=== PATIENT | male | born 1965 | race Caucasian/White ===

== ENCOUNTER 2018-06-15 15:21 | Emergency (ER) | payer BC, SELFPAY ==
[2018-06-15 16:22] LABS: #Basophils 0.1 thou/uL (0.0-0.2); #Eosinphils 0.1 thou/uL (0.0-0.7); #Lymphocytes 1.3 thou/uL (1.20-3.40); #Monocytes 0.7 thou/uL (0.11-0.59); #Neutrophils 8.9 thou/uL (1.40-6.50); %Eosinophils 0.7 % (0.0-10.0); %Lymphocytes 11.8 % (21.0-51.0); %Neutrophils 80.5 % (42.0-75.0); Hemoglobin 13.3 g/dL (14.0-18.0); Mean Corpuscular Hemoglobin 30.2 pg (27.0-31.0); Mean Corpuscular Volume 91.4 fL (78.0-98.0); Mean Platelet Volume 7.8 fL (7.4-10.4); Platelet Count 252 thou/uL (130-400); RBC Distribution Width 11.7 % (11.5-14.5)
[2018-06-15 16:38] LABS: ALT (SGPT) 112 U/L (8-55); AST (SGOT) 149 U/L (5-34); Albumin 3.4 g/dL (3.5-5.0); Alkaline Phosphatase 49 U/L (40-150); Anion Gap 22 mmol/L (10-20); BUN (Urea Nitrogen) 54 mg/dL (8.4-25.7); Bilirubin, Total 0.5 mg/dL (0.2-1.2); CK (CPK) 71 U/L (30-200); Calc. Creatinine Clearance 0 mL/min (70-130); Carbon Dioxide 19 mmol/L (22-29); Chloride 99 mmol/L (98-107); Estimated GFR-MDRD 41; Globulin 3.2 g/dL (2.4-3.5); Glucose 129 mg/dL (70-105); Lipase 26 U/L (8-78); Potassium 5.9 mmol/L (3.5-5.1); Protein, Total 6.6 g/dL (6.0-8.3); Sodium 134 mmol/L (136-145)
[2018-06-15 16:39] LABS: Troponin I 0.014 ng/mL (< 0.028)
--- NOTE | 2018-06-15 16:46 | RAD ---
2 VIEW CHEST: Date: 06/15/18 INDICATION: Dyspnea. Abdominal pain. FINDINGS: Lungs appear well aerated and clear. No infiltrate identified. No evidence of effusion. Heart and med iastinum unremarkable. Osseous structures appear unremarkable. IMPRESSION: No acute findings. POS: [facility]
[2018-06-15 16:50] LABS: Calcium 12.5 mg/dL (7.8-10.44)
--- NOTE | 2018-06-15 17:02 | CT ---
CT ABDOMEN AND PELVIS WITHOUT IV CONTRAST: 06/15/18 Multiple tomograms obtained through the abdomen and pelvis without IV enhancement. Patient has been given some oral contrast earlier in the day at a different institution. That exam wa s cancelled according to the technologist in [place], [place] and patient now presents to [facility]. INDICATIONS: Abdominal pain. Acute renal failure. FINDINGS: Images through the lung bases show small bilateral pleural effusions, slightly larger on the right. The liver, spleen and pancreas appear unremarkable for an unenhanced study. Small radiopaque gallston e is seen in the neck of the gallbladder which is mildly contracted. The stomach and duodenum appear unremarkable. Adrenal glands appear unremarkable. There is prominent bilateral perinephric stranding suggesting maría ateral perinephric inflammation, more prominent on the right. There is a mass-like isodense soft tiss ue structure which appears to involve the posteromedial right kidney measuring up to 6 cm. A renal ab scess should be considered given the perinephric inflammatory change. The uterus cannot be delineate d. There is no definite hydronephrosis present. The urinary bladder is contracted although there is evidence of bladder wall thickening. Small bowel loops are normal caliber. There is diffuse mesenteric stranding and there may be a small amount of free ascites. IMPRESSION: 1. Abnormal bilateral perinephric stranding and haziness, more prominent on the right. Findings would suggest bilateral perinephric inflammatory process. There is a mass-like density projecting fro m the posterior right kidney measuring up to 6 cm. Renal abscess should be considered given the infla mmatory changes in the right retroperitoneum. No definite hydronephrosis, although the ureters cannot be delineated. The bladder appears abnormal with a thickened wall. Recommend urologic consultation. A retrograde study would be of benefit. 2. Small bilateral pleural effusions. 3. Cholelithiasis. 4. Small volume ascites. POS: [facility]
[2018-06-15] MEDS ORDERED: Sodium Chloride 0.9% 100 ML ONE (17:04)
[2018-06-15] MEDS ORDERED: Piperacillin/Tazobactam 3.375 GM VIAL ONE (17:04)
[2018-06-15] MEDS ORDERED: Sodium Chloride 0.9% 1,000 ML ONE (17:04)
[2018-06-15 17:17] LABS: Bilirubin Negative (Negative); Blood, Urine Negative (Negative); Glucose, Urine (Dipstick) Negative (Negative); Leukocyte Negative (Negative); Nitrite Negative (Negative); Protein, Urine (Dipstick) > or equal to 300 mg/dL (Neg-Trace); Urobilinogen 0.2 mg/dL (0.2-1.0)
[2018-06-15 17:19] LABS: Clarity SL HAZY (Clear)
[2018-06-15 17:27] LABS: Specific Gravity, Urine 1.021 (1.002-1.036); Squamous Epithelial 0-3 HPF (0-3); WBC/HPF 0-3 HPF (0-3)
[2018-06-15] MEDS ORDERED: Ondansetron HCl/PF 4 MG/2 ML Vial ONE (17:32)
[2018-06-15] MEDS ORDERED: Fentanyl 100 MCG/2 ML VIAL ONE (17:32)
== END 2018-06-15 17:47 | disposition short-term general hospital (02) ==
LOC: NAV ERS 15:21
DX: N15.1 Renal and perinephric abscess (principal); K80.20 Calculus of gallbladder without cholecystitis without obstruction; R18.8 Other ascites; N28.9 Disorder of kidney and ureter, unspecified; R94.5 Abnormal results of liver function studies; E11.9 Type 2 diabetes mellitus without complications; I10 Essential (primary) hypertension; Z87.891 Personal history of nicotine dependence; Z79.4 Long term (current) use of insulin; Z79.899 Other long term (current) drug therapy
CPT/HCPCS: 71046; 74176; 80053; 81003; 81015; 82550; 82553; 83605; 83690; 83880; 84484; 85025; 85379; 87040; 87086; 93005; 96365; 96375; J2405; J2543; J3010; J7050